=== PATIENT | male | born 1990 | race Two or more races ===

== ENCOUNTER 2022-05-11 08:56 | Emergency (ER) | payer OTHER ==
[2022-05-11 09:19] VITALS: BP 139/91; PULSE 103; RESP 18; TEMP 97.9; BMI 27.0
[2022-05-11 11:01] LABS: THROAT:GRP A STREP NOT DETECTED (NOTDETECTED)
[2022-05-11 12:35] LABS: BASO % 0.4 % (0-2.0); EOS % 1.6 % (0-4.5); HEMATOCRIT 37.9 % (35.4-49); HEMOGLOBIN 12.2 GM/dL (11.7-16.9); LYMPH % 17.7 % (8-40); MCH 20.8 pg (25.7-33.7); MCHC 32.1 g/dl (32.0-35.9); MEAN CELL VOLUME 64.7 fl (80-96); MEAN PLT VOLUME 8.9 fl (7.5-11.1); MONO % 10.3 % (3.8-10.2); PLATELET COUNT 156 10^3/uL (134-434); RBC 5.85 M/mm3 (4.00-5.60); RDW 16.2 % (11.9-15.9); WHITE BLOOD COUNT 8.5 K/mm3 (4.0-10.0)
[2022-05-11 12:49] LABS: CALCIUM 9.1 mg/dL (8.5-10.1)
[2022-05-11 12:50] LABS: ALBUMIN 3.8 g/dl (3.4-5.0); BLOOD UREA NITROGEN 17.8 mg/dL (7-18)
[2022-05-11 12:54] LABS: TOT PROT 7.7 g/dl (6.4-8.2)
[2022-05-11 12:55] LABS: BILIRUBIN,TOTAL 0.3 mg/dL (0.2-1)
[2022-05-11 14:04] LABS: ANISOCYTOSIS 2+; MACROCYTOSIS 0
== END 2022-05-11 15:09 | disposition home or self-care (01) ==
LOC: JER 08:56
DX: J02.9 Acute pharyngitis, unspecified (principal); R59.0 Localized enlarged lymph nodes
CPT/HCPCS: 0241U-QW; 36415; 70491-TC; 80053; 85025; 87651; 99285-25

== ENCOUNTER 2024-02-29 16:56 | Emergency (ER) | payer OTHER ==
[2024-02-29 17:00] VITALS: BP 127/77; PULSE 118; RESP 18; TEMP 98; BMI 27.7
[2024-02-29] MEDS ORDERED: KETOROLAC TROMETHAMINE 30 MG/1 ML VIAL ONE (18:31)
[2024-02-29] MEDS: KETOROLAC TROMETHAMINE 30 MG/1 ML VIAL IM ONE (18:34)
== END 2024-02-29 18:36 | disposition home or self-care (01) ==
LOC: JERFT 16:56
PROC: 3E0133Z Introduction of Anti-inflammatory into Subcutaneous Tissue, Percutaneous Approach (ICD-10-PCS; principal; 2024-02-29)
DX: M72.2 Plantar fascial fibromatosis (principal)
CPT/HCPCS: 73630-TC-RT-FY; 99284-25

== ENCOUNTER 2024-03-05 15:54 | Emergency (ER) | payer OTHER ==
[2024-03-05 16:13] VITALS: BP 119/78; PULSE 93; RESP 18; TEMP 98.4; BMI 26.4
[2024-03-05] MEDS ORDERED: IBUPROFEN 400 MG TABLET (FP) PO ONE (17:40)
[2024-03-05] MEDS: IBUPROFEN 400 MG TABLET (FP) PO ONE (17:45)
[2024-03-05 17:53] LABS: BASO % 0.6 % (0-2.0); HEMATOCRIT 34.2 % (35.4-49); HEMOGLOBIN 10.8 GM/dL (11.7-16.9); LYMPH % 31.9 % (8-40); MCHC 31.7 g/dl (32.0-35.9); MEAN CELL VOLUME 63.3 fl (80-96); MEAN PLT VOLUME 8.4 fl (7.5-11.1); MONO % 9.6 % (3.8-10.2); NEUT % 54.9 % (42.8-82.8); PLATELET COUNT 229 10^3/uL (134-434); RDW 16.3 % (11.9-15.9)
[2024-03-05 18:09] LABS: POTASSIUM 4.1 mmol/L (3.5-5.1)
[2024-03-05 18:11] LABS: ALBUMIN 3.6 g/dl (3.4-5.0); BLOOD UREA NITROGEN 17.9 mg/dL (7-18); CALCIUM 8.8 mg/dL (8.5-10.1)
[2024-03-05 18:13] LABS: ANISOCYTOSIS 2+; MACROCYTOSIS 0; TARGET CELLS 1+
[2024-03-05 18:14] LABS: CREATININE 1.1 mg/dL (0.55-1.3)
[2024-03-05 18:16] LABS: BILIRUBIN,TOTAL 0.4 mg/dL (0.2-1); TOT PROT 7.1 g/dl (6.4-8.2)
[2024-03-05 18:38] LABS: ERYTHROCYTE SEDIMENTATION RATE 25 mm/hr (0-10)
== END 2024-03-05 19:35 | disposition home or self-care (01) ==
LOC: JER 15:54 → JERFT 15:54
DX: M25.462 Effusion, left knee (principal)
CPT/HCPCS: 36415; 73562-TC-LT-FY; 80053; 85025; 85651; 86140; 86618; 99284-25